=== PATIENT | female | born 2000 | race Caucasian/White ===

== ENCOUNTER 2023-04-23 22:46 | Emergency (ER) | payer OTHER ==
[~2023-04-23] VITALS: Ht 160 cm; Wt 77.1 kg
[2023-04-23 22:47] VITALS: BP 148/75; PULSE 152; RESP 33; TEMP 99.1; O2SAT 97
[2023-04-23] MEDS ORDERED: ALBUTEROL 0.083% 2.5 MG/3 ML NEBU INH ONE ×2 (22:52→23:05)
[2023-04-23 22:59] VITALS: PULSE 154; RESP 26; O2SAT 96
[2023-04-23] MEDS ORDERED: MAG SULF 2000 MG/WATER PREMIX 50 ML IV ONE (23:05)
[2023-04-23] MEDS ORDERED: methylPREDNISolone SS 125 MG in WATER STERILE 2 ML IV ONE (23:05)
[2023-04-23 23:18] LABS: BASOPHILS # (AUTO) 0.1 K/uL (0.00-0.22); BASOPHILS % (AUTO) 0.6 % (0.0-2.0); EOSINOPHILS # (AUTO) 0.8 K/uL (0-0.4); EOSINOPHILS % (AUTO) 5.3 % (0.0-4.0); HEMATOCRIT 41.8 % (36-48); HEMOGLOBIN 14.2 g/dL (12.0-16.0); LYMPHOCYTES # (AUTO) 2.4 K/uL (2.5-16.5); LYMPHOCYTES % (AUTO) 16.7 % (20.5-51.1); MEAN CORPUSCULAR HEMOGLOBIN 31 pg (27-31); MEAN CORPUSCULAR HGB CONC 34 g/dL (33-37); MEAN CORPUSCULAR VOLUME 91.1 fL (80-94); MONOCYTES # (AUTO) 1.1 K/uL (0.8-1.0); MONOCYTES % (AUTO) 7.4 % (1.7-9.3); NEUTROPHILS # (AUTO) 10.1 K/uL (1.8-7.7); PLATELET COUNT (AUTO) 363 K/uL (140-450); RED BLOOD CELL COUNT(AUTO) 4.59 MIL/uL (4.20-5.40); RED CELL DISTRIBUTION WIDTH 13.3 % (11.6-13.7); WHITE BLOOD COUNT (AUTO) 14.5 K/uL (4.8-10.8)
[2023-04-23] MEDS ORDERED: BUDESONIDE 0.5 MG/2 ML NEBU INH ONE (23:20)
[2023-04-23 23:27] LABS: ANION GAP 13.9 (8-16); CARBON DIOXIDE 25.7 mmol/L (21-32); CREATININE 0.8 mg/dL (0.6-1.3); POTASSIUM 3.6 mmol/L (3.5-5.1)
[2023-04-23 23:28] VITALS: PULSE 166; RESP 22; O2SAT 99
[2023-04-24 00:31] LABS: RSV Negative (NEGATIVE)
[2023-04-24 00:36] LABS: FLU A ANTIGEN negative (NEGATIVE); FLU B ANTIGEN negative (NEGATIVE)
[2023-04-24] MEDS ORDERED: LEVALBUTEROL 0.63 MG/3 ML NEBU INH ONE ×2 (02:15→04:30)
[2023-04-24 02:21] VITALS: PULSE 133; RESP 20; O2SAT 95
[2023-04-24 02:43] VITALS: BP 115/53; TEMP 98.9
[2023-04-24 04:43] VITALS: PULSE 135; RESP 20; O2SAT 95
== END 2023-04-24 05:42 | disposition short-term general hospital (02) ==
LOC: MED 22:46
DX: J45.901 Unspecified asthma with (acute) exacerbation (principal); Z20.822 Contact with and (suspected) exposure to COVID-19; Z79.899 Other long term (current) drug therapy
CPT/HCPCS: 36415; 71045; 80048; 84703; 85025; 87420; 87426; 87804; 94640; 96365; 99291; J3475; J7613; J7614; J7626; Q0092